=== PATIENT | female | born 1985 | race African-American/Black ===

== ENCOUNTER → 2018-03-10 | Outpatient (CLI) | payer MEDICAID | LOC: FIMAGING 07:32 | PROVIDERS: ATTEND Midwife | DX: Z36.89 Encounter for other specified antenatal screening (principal); O36.62X0 Maternal care for excessive fetal growth, second trimester, not applicable or unspecified; Z3A.19 19 weeks gestation of pregnancy ==

== ENCOUNTER → 2018-03-27 | Outpatient (CLI) | payer MEDICAID | LOC: FIMAGING 14:09 | PROVIDERS: ATTEND Midwife | DX: R10.13 Epigastric pain (principal); R11.10 Vomiting, unspecified; Z3A.21 21 weeks gestation of pregnancy | CPT/HCPCS: 86644-90; 86645-90; 86777-90; 86778-90 ==

== ENCOUNTER 2018-04-06 09:14 | Day surgery (SDC) | payer MEDICAID ==
[2018-04-06] MEDS ORDERED: LR 1,000 ML IV ONE ×2 (09:25→09:31)
[2018-04-06] MEDS ORDERED: LIDOCAINE 1% 2 ML INJ ID PRN (09:31)
[2018-04-06] MEDS ORDERED: LIDOCAINE 1% 300 MG/30 ML SDV ONE ×2 (10:24→10:34)
[2018-04-06] MEDS ORDERED: BUPIVACAINE 0.5% 30 ML SDV ONE ×2 (10:26→10:35)
--- NOTE | 2018-04-06 10:55 | PDANEPAE ---
ANE History of Present Illness abdominal pain, here for lap alireza ANE Past Medical History - Cardiovascular History Hx Hypertension: No Hx Arrhythmias: No Hx Chest Pain: No Hx Coronary Artery / Peripheral Vascular Disease: No Hx CHF / Valvular Disease: No Hx Palpitations: No - Pulmonary History Hx COPD: No Hx Asthma/Reactive Airway Disease: No Hx Recent Upper Respiratory Infection: No Hx Oxygen in Use at Home: No Hx Sleep Apnea: No Sleep Apnea Screening Result - Last Documented: Negative - Neurologic History Hx Cerebrovascular Accident: No Hx Seizures: No Hx Dementia: No Neurologic History Comment: hx migraine - Endocrine History Hx Diabetes: No - Renal History Hx Renal Disorders: No - Liver History Hx Hepatic Disorders: No Hepatic History Comment: gallstones - Neurological & Psychiatric Hx Hx Neurological and Psychiatric Disorders: Yes Neurological / Psychiatric History Comment: anxiety - Cancer History Hx Cancer: No - Congenital Disorder History Hx Congenital Disorders: No - GI History Hx Gastrointestinal Disorders: Yes Gastrointestinal History Comment: recurrent nausea. constipation - Other Health History Other Health History: 22 weeks . has braces. chronic lower back pain - Chronic Pain History Chronic Pain: Yes (lower back pain) - Surgical History Prior Surgeries: arthroscopy on hip. sinus surgery. breast reduction. back injections ANE Review of Systems Review of Systems: - Exercise capacity METS (RN): 4 METS ANE Patient History - Allergies Allergies/Adverse Reactions: No Known Allergies Allergy (Verified 04/03/18 11:07) - Home Medications Home medications: home medication list seen and reviewed Home Medications: Folic Acid 04/03/18 [Last Taken 04/05/18] Tablet 04/03/18 [Last Taken 04/05/18] Reglan 04/03/18 [Last Taken 2 Days Ago ~04/04/18] Zofran 04/03/18 [Last Taken 04/03/18] - NPO status NPO Status: no food or drink >8 hours NPO Since - Liquids (Date): 04/06/18 NPO Since - Liquids (Time): 08:00 NPO Since - Solids (Date): 04/05/18 NPO Since - Solids (Time): 17:30 - Anes Hx Anes Hx: no prior problems - Smoking Hx Smoking Status: Former smoker - Alcohol Use Alcohol Use: None - Family Anes Hx Family Anes Hx: none Family Hx Anesthesia Complications: none ANE Labs/Vital Signs - Vital Signs Vital Signs: reviewed preoperatively; see RN documention for details Blood Pressure: 97/61 Heart Rate: 87 Respiratory Rate: 14 O2 Sat (%): 97 Height: 162.56 cm Weight: 78.925 kg ANE Physical Exam - Airway Neck exam: FROM Mallampati Score: Class 2 Mouth exam: normal dental/mouth exam (braces) - Pulmonary Pulmonary: no respiratory distress, clear to auscultation - Cardiovascular Cardiovascular: regular rate and rhythym, no murmur, rub, or gallop - ASA Status ASA Status: II ANE Anesthesia Plan Anesthesia Plan: general endotracheal anesthesia
--- NOTE | 2018-04-06 10:59 | PDHPUP ---
History & Physical Update H&P update statement: This history and physical update is based on an assessment of the patient which was completed after admission or registration (within 24 hours), but prior to the surgery/procedure. H&P update: H&P reviewed & patient examined, no change in patient's condition since H&P completed (Patient has c/o intractable symptoms. No new surgical concerns. Expect Lap Ale as outpt unless clinical need to stay)
[2018-04-06] MEDS ORDERED: fentaNYL 100 MCG/2 ML INJ ONE ×5 (11:00→13:33)
[2018-04-06] MEDS ORDERED: PROPOFOL 200 MG/20 ML VIAL ONE (11:00)
[2018-04-06] MEDS ORDERED: ONDANSETRON 4 MG/2 ML VIAL ONE ×3 (11:01→13:15)
[2018-04-06] MEDS ORDERED: DEXAMETHASONE 4 MG/ML VIAL ONE (11:01)
[2018-04-06] MEDS ORDERED: LIDOCAINE 2% 100 MG/5 ML SYR ONE (11:04)
[2018-04-06] MEDS ORDERED: ROCURONIUM 50 MG/5 ML VIAL ONE (11:04)
[2018-04-06] MEDS ORDERED: NALOXONE HCL 0.4 MG/ML INJ IVP PRN (12:21)
[2018-04-06] MEDS ORDERED: oxyCODONE IR 5 MG TAB PO PRN (12:21)
[2018-04-06] MEDS ORDERED: ACETAMINOPHEN 500 MG TAB PO PRN (12:21)
[2018-04-06] MEDS: fentaNYL 100 MCG/2 ML INJ IVP PRN ×5 (12:22→13:35)
--- NOTE | 2018-04-06 12:22 | POSTANESTH ---
Post Anesthetic Evaluation Cardiovascular Status: Normal, Stable, Similar to Pre-Op Cond Respiratory Status: Normal, Stable, Similar to Pre-op Cond. Level of Consciousness/Mental Status: Can Participate in Eval, Alert and Oriented Pain Control: Adequate, Prn Tx Ordered Nausea/Vomiting Control: Adequate, Prn Tx Ordered Complications Possibly Related to Anesthesia: None Noted
[2018-04-06] MEDS ORDERED: HYDROCODONE/APAP 5/325 TAB ONE ×2 (12:31→15:44)
[2018-04-06] MEDS ORDERED: HYDROmorphONE/DILAUDID 2 MG/ML INJ ONE (12:31)
[2018-04-06] MEDS: HYDROmorphONE/DILAUDID 2 MG/ML INJ IVP PRN ×4 (12:33→13:35)
[2018-04-06] MEDS: ONDANSETRON 4 MG/2 ML VIAL IVP PRN ×2 (12:35→13:16)
[2018-04-06] MEDS ORDERED: ONDANSETRON 4 MG/2 ML VIAL IVP PRN (12:57)
--- NOTE | 2018-04-06 12:59 | POSTOPPROG ---
Post Op Note Date of Operation: 04/06/18 Surgeon: Luis Tay Quality Reviewer: delmis Anesthesiologist: Cleopatra Anesthesia: GET(General Endotracheal) Pre-op Diagnosis: cholecystitis Post-op Diagnosis: same Procedure: Lap Ale Findings: Minimal inflammation Inf/Abcess present in the surg proc area at time of surgery?: No Specimen(s): gallbladder
[2018-04-06] MEDS: HYDROCODONE/APAP 5/325 TAB PO PRN ×2 (13:13→15:45)
[2018-04-06 17:31] VITALS: BP 99/72
--- NOTE | 2018-04-07 14:55 | GOP ---
DATE OF OPERATION: SURGEON: Luis Tay MD DIRECTOR BUSINESS INTEGRATION: No assistant hall director. ANESTHESIA: General endotracheal anesthesia was used. ANESTHESIOLOGIST: Chang Whelan MD. PREOPERATIVE DIAGNOSIS: Cholecystitis. POSTOPERATIVE DIAGNOSIS: Cholecystitis. PROCEDURE PERFORMED: Laparoscopic cholecystectomy. FINDINGS: SPECIMENS: The gallbladder to permanent pathology. ESTIMATED BLOOD LOSS: 10 mL. INDICATIONS: 32-year-old woman who is 22 to 23 weeks along in gestational age for second w una presents with intractable nausea, vomiting, and stone in the gallbladder. After being apprised of the risks, benefits, and alternatives to surgery, including waiting until after the baby is born, luke white is brought in for urgent cholecystectomy. DESCRIPTION OF PROCEDURE: The patient was brought to the operating room. After induction of endotra cheal anesthesia in supine position, abdomen was prepped with chlorhexidine and draped sterilely. Ti me-out procedure was performed according to institutional standards. Local anesthetic was infused in skin and subcutaneous tissues, trocar sites and open trocar placement were done subxiphoid. The abdomen was insufflated to 15 torr and inspected. There was a gravid luisa crystal as expected at the level of the umbilicus. Just above, working trocars were placed above the umb ilicus carefully to avoid the uterus and in the right upper quadrant. The gallbladder was brought in the field of dissection and low laparoscopy at 8 torr with carbon dioxide was used to maintain press ure and visualization. The gallbladder was brought to field of dissection. Cystic duct and cystic a rtery identified in the triangle of Calot and triply clipped and ligated. Posterior artery was also identified, triply clipped, ligated. The gallbladder was taken off the gallbladder bed with electroc autery, brought out through the umbilical incision. Hemostasis was assured. The abdomen was inspected. After insuring needle instrument sponge counts were correct, it was defla christi. The fascia was reapproximated at the level of the subxiphoid area and all ports were closed at the level of skin using 4-0 Monocryl and Dermabond. The patient awakened, extubated, and taken to re covery in stable condition. No immediate complications. Postop tones are normal. COMPLICATIONS: There were no complications. /[id number]/MODL
== END 2018-04-06 18:00 | disposition home or self-care (01) ==
LOC: FSGY 09:14
PROVIDERS: ATTEND Surgery
PROC: 0FT44ZZ Resection of Gallbladder, Percutaneous Endoscopic Approach (ICD-10-PCS; principal; 2018-04-06 11:00)
DX: K80.10 Calculus of gallbladder with chronic cholecystitis without obstruction (principal)
CPT/HCPCS: J1100; J1170; J2001; J2405; J2704; J3010

== ENCOUNTER → 2018-04-20 | Outpatient (CLI) | payer MEDICAID | LOC: FIMAGING 11:27 | PROVIDERS: ATTEND Midwife | DX: Z34.82 Encounter for supervision of other normal pregnancy, second trimester (principal); Z82.49 Family history of ischemic heart disease and other diseases of the circulatory system; Z3A.24 24 weeks gestation of pregnancy ==